=== PATIENT | female | born 1970 | race Hispanic/Latino ===

== ENCOUNTER 2017-10-15 06:14 | Observation (INO) | payer OTHER ==
[2017-10-11 10:07] VITALS: BMI 19.5
[2017-10-15] MEDS ORDERED: Succinylcholine 200 mg/10 ml Inj IV ONE (07:16)
[2017-10-15] MEDS ORDERED: ePHEDrine 50 mg/ml Inj ONE (07:16)
[2017-10-15] MEDS ORDERED: Rocuronium 10 mg/ml (5 ml) ONE (07:16)
[2017-10-15] MEDS ORDERED: Propofol 10 mg/ml Inj (20 ML) ONE (07:16)
[2017-10-15] MEDS ORDERED: Midazolam 2 MG/2 ML VIAL ONE (07:16)
[2017-10-15] MEDS ORDERED: Lactated Ringer's 1,000 ML IV ONE ×2 (07:20→08:00)
[2017-10-15 07:22] LABS: HEMOGLOBIN 12.4 g/dL (12.0-16.0); MEAN CELL VOLUME 88.9 fl (81.0-99.0); MEAN CORPUSCULAR HEMOGLOBIN 30.5 pg (27.0-31.0); MEAN CORPUSCULAR HGB CONC 34.4 g/dL (33.0-37.0); RBC 4.06 Mil/uL (3.80-5.20); RED CELL DISTRIBUTION WIDTH 12.8 % (11.5-14.5)
[2017-10-15] MEDS ORDERED: Bupivacaine HCl 0.5% PF (30 ml) Inj ONE (07:25)
[2017-10-15] MEDS ORDERED: ceFAZolin IV 2 gm in Dextrose 2 GM/50 ML BAG IVPB ONE (07:25)
[2017-10-15] MEDS ORDERED: Neostigmine 1:1000 (1 mg/ml) Inj ONE (07:50)
[2017-10-15] MEDS ORDERED: Esmolol 100 mg/10ml Inj IV ONE (07:51)
[2017-10-15] MEDS ORDERED: Dexamethasone 4 mg/1 ml ONE (07:52)
--- NOTE | 2017-10-15 08:05 | CP.SDSHP ---
Same Day Surgery H & P - History Proposed Procedure: Robotic hysterectomy cystoscopy - Allergies Allergies: Allergies codeine Allergy (Verified 10/11/17 09:37) VOMITING - Physical Exam Vital Signs: Vital Signs 10/15/17 10/15/17 06:59 07:02 Temperature 98.5 F Pulse Rate 58 L 58 L Respiratory 20 Rate Blood Pressure 98/57 L O2 Sat by Pulse 98 Oximetry - Impression Impression: History of menorrhagia pelvic pain refractory to medical and surgical management. Patient has history of endometrial ablation. Patient desires definitive treatment. I discussed risks benefits and alternatives to surgery patient agreed to plan of care. Patient will remain for observation postoperatively - Date & Time Date: 10/15/17 Time: 08:04 Short Stay Discharge - Short Stay Discharge Admitting Diagnosis/Reason for Visit: R10.2 Disposition: HOME/ ROUTINE Referrals: FAMILY PROVIDER,NO [Primary Care Provider] -
[2017-10-15] MEDS ORDERED: Bupivacaine HCl 0.5% PF (30 ml) Inj IJ ONE ×2 (08:30)
[2017-10-15] MEDS ORDERED: Morphine 1 mg/ml preservative-free Inj(Duramorph) ONE (08:33)
[2017-10-15] MEDS ORDERED: DiphenhydrAMINE 50 mg/ml Inj IVP PRN (10:23)
[2017-10-15] MEDS: HYDROmorphone 0.5 mg/0.5 ml ISec IVP PRN ×2 (10:35→11:00)
[2017-10-15] MEDS ORDERED: Oxycodone/Acetaminophen 5/325 mg Tab PO PRN ×2 (11:22→11:28)
[2017-10-15] MEDS: Lactated Ringer's 1,000 ML IV SCH ×2 (11:45→20:55)
[2017-10-15] MEDS ORDERED: Naloxone 0.4 mg/ml Inj (Adult) IVP PRN ×2 (12:00→13:07)
--- NOTE | 2017-10-15 14:13 | OP ---
PROCEDURE DATE: 10/15/2017 PREOPERATIVE DIAGNOSES: Menorrhagia, pelvic pain, refractory to both medical and surgical management. POSTOPERATIVE DIAGNOSES: Menorrhagia, pelvic pain, refractory to both medical and surgical management. OPERATION PERFORMED: Robotic-assisted hysterectomy and cystoscopy. SURGEON: Alyssa Rodgers MD ASSISTANTS: Modesto Brantley DO and Jignesh Olivas MD and they were both instrumental under the care of the patient, helped to create exposure, obtain hemostasis, they were helpful in extraction of the patient and closure of the patient. The procedure would not have been possible without their assistance. TYPE OF ANESTHESIA: General. ANESTHESIA ADMINISTERED BY: Dr. Gonzales. ESTIMATED BLOOD LOSS: 100 mL. URINE OUTPUT: Costello catheter put out approximately 800 mL of clear urine. INTRAVENOUS FLUID INTAKE: The patient received 1700 mL of D5 LR intraoperatively. OPERATIVE FINDINGS: Normal uterus, ovaries, and tubes. There were anterior bladder adhesions from her previous deliveries. There was a large endometriotic implant in the anterior abdominal wall. On cystoscopy, the dome of the bladder was noted to be intact. No blood noted in the urine. There was bilateral clear efflux of urine from the ureteral orifices. DESCRIPTION OF PROCEDURE: After informed consent was obtained, the patient was taken to the operating room where she was given general anesthesia. She was then prepped and draped in a normal sterile fashion. The patient's legs were then [facility]. Attention was then turned to the vagina where a weighted speculum was inserted into the vagina. The cervix was visualized and grasped with a single tooth tenaculum. The cervix was gently dilated and V-Care uterine manipulator was inserted into the uterine cavity and needs to manipulate the uterus. Attention was then turned to urethra, where Costello catheter was inserted to monitor the patient's urinary output. Attention was then turned to approximately 2 cm superior to the umbilicus where Marcaine was infused and 8 mm incision was made and a Veress needle was inserted into abdominal cavity. Placement was confirmed with a fluid-filled syringe. The abdomen was then insufflated to 15 mmHg. An 8 mm robotic port was introduced into the abdominal cavity and placement was confirmed with a laparoscope. The abdomen was then surveyed with the findings noted above. Attention was then turned to approximately 5 cm superior to the right anterior iliac crest, Marcaine was infused and an 8 mm incision was made and robotic port was introduced into the abdominal cavity under direct visualization. A similar procedure was performed on the left, approximately 10 cm right and lateral to the umbilicus, Marcaine was infused and 8 mm incision was made and additional robotic port was introduced into the abdominal cavity under direct visualization. Attention was then turned to approximately 10 cm left and lateral to the umbilicus. A 5 mm incision was made and an assist port was introduced into the abdominal cavity under direct visualization. The patient was then placed in deep Trendelenburg, the table was lowered, the robot was brought along the patient's side and docked without complication. The instruments used for the surgery were PK dissector, scissors, García SutureCut and ProGrasp. Attention was then turned to the left round ligament, it was serially coagulated then transected with the scissors. The utero-ovarian ligament was then identified, serially coagulated, and transected with the scissors. The anterior aspect of the bladder where adhesions were there from previous deliveries, they were meticulously lysed. The peritoneum was undermined down to the level of the V-Care cup. The cup was identified and the peritoneum was opened up down to the level of the cup anteriorly dense adhesions, which were meticulously dissected away. Attention was then turned to the posterior aspect of the uterus. The peritoneum was undermined, incised, and cut down to the level of the V-Care cup posteriorly. The uterine arteries were then skeletonized anteriorly coagulated. Attention was then turned to the right side, which in similar fashion the utero-ovarian ligament was identified, serially coagulated, and transected with the scissors. The round ligament was then identified, serially coagulated, and transected with the scissors. The peritoneum was then undermined and transected down to the level of V-Care cup anteriorly. Again, anterior bladder adhesions were identified and they were both dissected away using both sharp and blunt dissection. The cup was then identified anteriorly. The posterior aspect of the uterus was then examined. The peritoneum was undermined with PK dissector and excised down to the level of the V-Care cup posteriorly. The uterine arteries were then skeletonized, anteriorly coagulated, and transected with the scissors. The V-Care cup was then identified anteriorly, posteriorly, and laterally. A colpotomy incision was then made with hot florencia and the uterus and cervix were amputated from the vagina in circumferential fashion. The uterus and cervix were then delivered vaginally. Attention was then turned to the fallopian tubes where they were serially coagulated and transected bilaterally. Both specimens were extracted from the vagina and sent to Pathology for evaluation. The vaginal cuff was then closed with 2-0 barbed suture. The abdomen was then copiously irrigated. The irrigant was removed with a suction device. Hemostasis was noted. All instruments were then removed from the abdomen. The robot was undocked from the patient. All ports were removed from the abdomen and the skin was closed with 2-0 Biosyn and Dermabond. Cystoscopy was then performed, the bladder was noted to be intact. There was bilateral efflux of urine. All instruments were then removed from the abdomen and the vagina and the patient was taken to the recovery room in awake and stable condition. Alyssa Rodgers MD
[2017-10-15] MEDS: ceFAZolin 1 GM in Sodium Chloride 0.9% 100 ML IVPB SCH (17:40)
[2017-10-16] MEDS: ceFAZolin 1 GM in Sodium Chloride 0.9% 100 ML IVPB SCH ×2 (01:59→09:41)
[2017-10-16] MEDS: Lactated Ringer's 1,000 ML IV SCH (06:30)
[2017-10-16 08:01] LABS: MEAN CELL VOLUME 89.4 fl (81.0-99.0); MEAN CORPUSCULAR HEMOGLOBIN 30.9 pg (27.0-31.0); MEAN CORPUSCULAR HGB CONC 34.5 g/dL (33.0-37.0); RBC 3.25 Mil/uL (3.80-5.20); RED CELL DISTRIBUTION WIDTH 12.7 % (11.5-14.5); WHITE BLOOD COUNT 8.6 K/uL (4.8-10.8)
--- NOTE | 2017-10-16 08:01 | CP.SDSHP ---
Same Day Surgery H & P - Allergies Allergies: Allergies codeine Allergy (Verified 10/11/17 09:37) VOMITING - Physical Exam Vital Signs: Vital Signs 10/16/17 06:00 Temperature 99.2 F Pulse Rate 66 Respiratory 20 Rate Blood Pressure 106/58 L O2 Sat by Pulse 100 Oximetry Short Stay Discharge - Short Stay Discharge Admitting Diagnosis/Reason for Visit: PELVIC PAIN AND MENORRHAGIA STATUS POST ROBOTIC Referrals: FAMILY PROVIDER,NO [Primary Care Provider] - Progress Note/Discharge Note with Instructions: Doiing well percocet for pain d/c home no heavy lifting npv
[2017-10-16] MEDS: Oxycodone/Acetaminophen 5/325 mg Tab PO PRN ×3 (09:42→23:12)
[2017-10-16 12:40] VITALS: TEMP 98.4
[2017-10-17 10:22] VITALS: BP 99/50; PULSE 84; RESP 18; O2SAT 100
--- NOTE | 2017-10-17 10:54 | CP.PCM.PN ---
Subjective - Date & Time of Evaluation Date of Evaluation: 10/17/17 Time of Evaluation: 10:52 - Subjective Subjective: Patient comfortable without complaints. Patient reports pain well controlled. Tolerating regular diet. Ambulating well. Voiding without complications. Positive bowel movement. Patient denies any chest pain or shortness of breath, nausea or vomiting. Objective - Vital Signs/Intake and Output Vital Signs (last 24 hours): Temp Pulse Resp BP Pulse Ox 98.4 F 84 18 99/50 L 100 10/17/17 10:22 10/17/17 10:22 10/17/17 10:22 10/17/17 10:22 10/17/17 10:22 - Medications Medications: Current Medications Ketorolac Tromethamine (Toradol) 30 mg IVP Q6 PRN PRN Reason: Pain, Mild (1-3) Last Admin: 10/15/17 11:35 Dose: 30 mg Metoclopramide HCl (Reglan) 10 mg IVP Q6 PRN PRN Reason: Nausea/Vomiting Last Admin: 10/15/17 20:56 Dose: 10 mg Naloxone HCl (Narcan) 0.1 mg IVP Q2M PRN PRN Reason: Shortness of Breath Ondansetron HCl (Zofran Inj) 4 mg IVP ONCE PRN PRN Reason: Nausea/Vomiting Ondansetron HCl (Zofran Inj) 4 mg IVP Q8 PRN PRN Reason: Nausea/Vomiting Oxycodone/Acetaminophen (Percocet 5/325 Mg Tab) 2 tab PO Q6 PRN PRN Reason: Pain, moderate (4-7) Stop: 10/18/17 11:23 Oxycodone/Acetaminophen (Percocet 5/325 Mg Tab) 1 tab PO Q4 PRN PRN Reason: Pain, moderate (4-7) Stop: 10/19/17 09:21 Last Admin: 10/16/17 23:12 Dose: 1 tab - Labs Labs: 10/16/17 06:30 - Constitutional Appears: Well, No Acute Distress - Eye Exam Eye Exam: Normal appearance, PERRL - ENT Exam ENT Exam: Mucous Membranes Moist - GI/Abdominal Exam Additional comments: Soft, nontender, nondistended. Bandage is removed. All port sites clean dry and intact. - Extremities Exam Extremities Exam: Normal Inspection. absent: Calf Tenderness, Tenderness Assessment and Plan - Assessment and Plan (Free Text) Assessment: Postop day #1 status post robotic-assisted hysterectomy. Patient recovering well Plan: Discharged home with postop instructions Patient will return to office in 1 week for follow-up and incision check
== END 2017-10-17 11:30 | disposition home or self-care (01) ==
LOC: H.OPSURG 06:14 → UNDOADMOB 10:28 → H.PEDS 10:28
PROVIDERS: ADMIT Obstetrics & Gynecology Gynecology; ATTEND Obstetrics & Gynecology Gynecology
DX: N92.0 Excessive and frequent menstruation with regular cycle (principal); N80.8 Other endometriosis; Z88.6 Allergy status to analgesic agent
CPT/HCPCS: 36415; 58570; 85027; 86850; 86900; 88305; G0378; J0330; J0690; J1100; J1170; J1885; J2001; J2250; J2270; J2274; J2704; J2710; J2765; J3010; J7120